=== PATIENT | female | born 1955 | race Caucasian/White ===

== ENCOUNTER → 2018-08-10 | Outpatient (REF) | payer OTHER ==
[~2018-08-10] MED LIST: ADLT ASA LOW81 MG OR; CRESTOR40 MG OR; DIOVAN80 MG OR; EXFORGE1 TA2 PO; HYDROCHLOROT25 MG OR; TORADOL OR; XANAX XR0.5 MG OR; ZOFRAN ODT4 MG OR
[2018-08-10 10:20] LABS: ALBUMIN 4.6 g/dL (3.2-5.0); ALKALINE PHOSPHATASE 82 u/l (38-126); ANION GAP 17 (6-22 (CALC)); BILIRUBIN, TOTAL 1.2 mg/dL (0.0-1.4); BUN 19 mg/dL (8-23); BUN/CREATININE RATIO 25 (12-20 (CALC)); CALCULATED LDLCHOLESTEROL 65 mg/dL (62-129 (CALC)); CARBON DIOXIDE 27 mmol/l (22-30); CHLORIDE 100 mmol/l (95-108); CHOLESTEROL HDL RATIO 2.9 (<4.4 (CALC)); CREATININE 0.8 mg/dL (0.5-1.0); GFR > 60 ML/MIN (>=60 (CALC)); GFR FOR AFR.AMER. > 60 ML/MIN (>=60 (CALC)); HDL CHOLESTEROL 61 mg/dL (>=40); POTASSIUM 3.9 mmol/l (3.5-5.1); SGOT/AST 26 u/l (9-36); SODIUM 140 mmol/l (137-146); TOTAL CHOLESTEROL 175 mg/dl (0-199); TOTAL PROTEIN 6.9 g/dL (6.3-8.2); TOTAL TRIGLYCERIDES 243 mg/dl (30-149); VLDL CHOLESTROL 49 mg/dl (1-41 (CALC))
== END | disposition home or self-care (01) | DRG 642 ==
LOC: LAB 09:04
PROVIDERS: ATTEND Internal Medicine
DX: E78.2 Mixed hyperlipidemia (principal)

== ENCOUNTER 2020-04-14 17:54 | Emergency (ER) | payer OTHER ==
[~2020-04-14 17:54] MED LIST changes: -ADLT ASA LOW81 MG OR; +ADLT ASA LOW81 MG PO; -CRESTOR40 MG OR; +CRESTOR40 MG PO
[2020-04-14] MEDS ORDERED: KEFLEX500 M1 PO (18:10)
[2020-04-14 18:20] VITALS: BP 146/74
[2020-04-14] MEDS ORDERED: NORVASC5 M1 PO (18:20)
[2020-04-14] MEDS ORDERED: DIOVAN HCT160 MG/25 PO (18:21)
== END 2020-04-14 18:20 | disposition home or self-care (01) | DRG 605 ==
LOC: ED 17:54
DX: S00.87XA Other superficial bite of other part of head, initial encounter (principal); I10 Essential (primary) hypertension; E11.9 Type 2 diabetes mellitus without complications; W54.0XXA Bitten by dog, initial encounter; Y93.K9 Activity, other involving animal care; Y92.410 Unspecified street and highway as the place of occurrence of the external cause; Y99.0 Civilian activity done for income or pay

== ENCOUNTER 2022-06-23 13:59 | Observation (INO) | payer MEDICARE, OTHER ==
[~2022-06-23] VITALS: Ht 167.6 cm; Wt 72.0 kg
[~2022-06-23 13:59] MED LIST changes: +DIOVAN HCT160 MG/25 PO; +KEFLEX500 M1 PO; +NORVASC5 M1 PO
[2022-06-23 15:02] VITALS: BP 144/76
[2022-06-23 15:16] LABS: BASO% 0.3 % (0-3); EOS% 2.3 % (0-8); HEMATOCRIT 40.8 % (37.0-47.0); HEMOGLOBIN 13.3 g/dl (12.0-16.0); IMMATURE GRANULOCYTES 0.3 % (0.0-5.0); LYMPH% 13.1 % (15-41); MEAN CELL VOLUME 89.7 fL CALC (80.0-100.0); MEAN CORPUSCULAR HGB 29.2 pG CALC (26.0-32.0); MEAN CORPUSCULAR HGB CONC 32.6 g/dL CAL (32.0-36.0); MONO% 8.8 % (2-13); NEUT# 9.31 thou/uL (2.00-7.15); NEUT% 75.2 % (42-76); RED BLOOD COUNT 4.55 mill/uL (4.20-5.60); RED CELL DISTRI WIDTH 14.3 % (11.5-15.5)
[2022-06-23 15:31] VITALS: BP 134/72
[2022-06-23 15:31] LABS: ALBUMIN 4.7 g/dL (3.2-5.0); ANION GAP 13 (6-22 (CALC)); BUN 14 mg/dL (8-23); BUN/CREATININE RATIO 17 (12-20 (CALC)); CARBON DIOXIDE 26 mmol/l (22-30); CHLORIDE 106 mmol/l (95-108); CREATININE 0.9 mg/dL (0.5-1.0); GFR FOR AFR.AMER. > 60 ML/MIN (>=60 (CALC)); GFR OTHER RACES > 60 ML/MIN (>=60 (CALC)); LIPASE 152 u/l (23-300); POTASSIUM 4.4 mmol/l (3.5-5.1); SODIUM 140 mmol/l (137-146); TOTAL PROTEIN 7.1 g/dL (6.3-8.2)
[2022-06-23 15:33] LABS: ALKALINE PHOSPHATASE 147 u/l (38-126); BILIRUBIN, TOTAL 2.1 mg/dL (0.0-1.4); SGOT/AST 190 u/l (9-36)
[2022-06-23 16:01] VITALS: BP 140/70
[2022-06-23] MEDS ORDERED: LEVOTHYROXIN25 MC1 PO (17:21)
[2022-06-23] MEDS ORDERED: ALLOPURINOL300 MG PO (17:21)
[2022-06-23] MEDS ORDERED: METFORMIN500 M2 PO (17:21)
[2022-06-23] MEDS ORDERED: VALSARTAN320 MG (17:22)
[2022-06-23 23:35] VITALS: BP 134/62
[2022-06-24 00:40] LABS: URINE BILIRUBIN - DIPSTICK NEGATIVE (NEGATIVE); URINE COLOR YELLOW; URINE GLUCOSE - DIPSTICK NEGATIVE (NEGATIVE); URINE KETONE NEGATIVE (NEGATIVE); URINE LEUK ESTERASE MODERATE (NEGATIVE); URINE NITRITE - DIPSTICK NEGATIVE (Negative); URINE PH 5.5 (4.5-8.0); URINE PROTEIN - DIPSTICK 30 mg/dL (NEG-TRACE)
[2022-06-24 00:41] LABS: URINE BLOOD DIPSTICK NEGATIVE (NEGATIVE); URINE WBC 20-50 WBC/hpf (0-5)
[2022-06-24 00:42] LABS: URINE BACTERIA MODERATE hpf; URINE EPITHELIAL CELLS MODERATE EPI/hpf (0-FEW)
[2022-06-24 04:42] VITALS: BP 136/71
[2022-06-24 05:26] LABS: BASO% 0.8 % (0-3); EOS% 6.2 % (0-8); HEMOGLOBIN 12.1 g/dl (12.0-16.0); IMMATURE GRANULOCYTES 0.3 % (0.0-5.0); LYMPH% 25.7 % (15-41); MEAN CELL VOLUME 90.5 fL CALC (80.0-100.0); MEAN CORPUSCULAR HGB 29.6 pG CALC (26.0-32.0); MEAN CORPUSCULAR HGB CONC 32.7 g/dL CAL (32.0-36.0); MONO% 10.4 % (2-13); NEUT# 3.72 thou/uL (2.00-7.15); NEUT% 56.6 % (42-76); RED BLOOD COUNT 4.09 mill/uL (4.20-5.60); RED CELL DISTRI WIDTH 14.4 % (11.5-15.5)
[2022-06-24 05:54] LABS: ALBUMIN 3.8 g/dL (3.2-5.0); ALKALINE PHOSPHATASE 141 u/l (38-126); ANION GAP 10 (6-22 (CALC)); BILIRUBIN, TOTAL 1.4 mg/dL (0.0-1.4); BUN 14 mg/dL (8-23); BUN/CREATININE RATIO 15 (12-20 (CALC)); CARBON DIOXIDE 23 mmol/l (22-30); CHLORIDE 113 mmol/l (95-108); GFR FOR AFR.AMER. > 60 ML/MIN (>=60 (CALC)); GFR OTHER RACES 55 ML/MIN (>=60 (CALC)); POTASSIUM 4.4 mmol/l (3.5-5.1); SGOT/AST 174 u/l (9-36); SODIUM 142 mmol/l (137-146)
[2022-06-24 06:42] VITALS: BP 124/57
[2022-06-24 14:18] VITALS: BP 134/70
[2022-06-24 15:58] VITALS: BP 131/72
[2022-06-24 20:01] VITALS: BP 133/73
[2022-06-25 04:29] VITALS: BP 127/60
[2022-06-25 06:26] LABS: BASO% 0.2 % (0-3); HEMATOCRIT 36.1 % (37.0-47.0); IMMATURE GRANULOCYTES 0.5 % (0.0-5.0); LYMPH% 14.6 % (15-41); MEAN CELL VOLUME 90.3 fL CALC (80.0-100.0); MEAN CORPUSCULAR HGB CONC 33.2 g/dL CAL (32.0-36.0); MONO% 6.1 % (2-13); NEUT# 4.81 thou/uL (2.00-7.15); NEUT% 78.6 % (42-76); RED CELL DISTRI WIDTH 14.2 % (11.5-15.5)
[2022-06-25 06:29] LABS: ALBUMIN 3.8 g/dL (3.2-5.0); ALKALINE PHOSPHATASE 127 u/l (38-126); ANION GAP 11 (6-22 (CALC)); BILIRUBIN, TOTAL 1.2 mg/dL (0.0-1.4); BUN 13 mg/dL (8-23); BUN/CREATININE RATIO 13 (12-20 (CALC)); CARBON DIOXIDE 20 mmol/l (22-30); CHLORIDE 113 mmol/l (95-108); GFR FOR AFR.AMER. > 60 ML/MIN (>=60 (CALC)); GFR OTHER RACES 55 ML/MIN (>=60 (CALC)); SGOT/AST 88 u/l (9-36); SODIUM 140 mmol/l (137-146); TOTAL PROTEIN 6.1 g/dL (6.3-8.2)
[2022-06-25 07:00] VITALS: BP 122/59
[2022-06-25 10:52] VITALS: BP 116/61
== END 2022-06-25 15:20 | disposition home or self-care (01) ==
LOC: ED 13:59 → ED-I 17:15 → ED 17:34 → MS2 17:35
PROVIDERS: Family Medicine; Nurse Practitioner Family; Surgery; ADMIT Internal Medicine; ATTEND Internal Medicine
PROC: 0FT44ZZ Resection of Gallbladder, Percutaneous Endoscopic Approach (ICD-10-PCS; principal; 2022-06-24)
DX: K80.00 Calculus of gallbladder with acute cholecystitis without obstruction (principal); N39.0 Urinary tract infection, site not specified; I10 Essential (primary) hypertension; E11.9 Type 2 diabetes mellitus without complications; Z90.49 Acquired absence of other specified parts of digestive tract; Z79.84 Long term (current) use of oral hypoglycemic drugs; Z20.822 Contact with and (suspected) exposure to COVID-19
CPT/HCPCS: J0131